=== PATIENT | male | born 1990 | race Hispanic/Latino ===

== ENCOUNTER 2019-03-20 20:15 | Emergency (ER) | payer OTHER ==
[~2019-03-20] VITALS: Ht 172.7 cm; Wt 99.8 kg
[2019-03-20] MEDS ORDERED: HYDROCODONE/APAP 10MG-325MG TAB PO ONE (21:15)
[2019-03-21] MEDS ORDERED: DICYCLOMINE HCL 20 MG/2 ML VIAL IM ONE (09:42)
[2019-03-21] MEDS ORDERED: KETOROLAC TROMETHAMINE 30 MG/ML VIAL ONE (09:42)
== END 2019-03-20 21:37 | disposition home or self-care (01) ==
LOC: ER 20:15
DX: R10.11 Right upper quadrant pain (principal); R11.0 Nausea; K80.70 Calculus of gallbladder and bile duct without cholecystitis without obstruction
CPT/HCPCS: 99282

== ENCOUNTER 2019-03-21 08:03 | Observation (INO) | payer OTHER ==
[~2019-03-21] VITALS: Ht 172.7 cm; Wt 101.2 kg
[2019-03-21] MEDS ORDERED: DICYCLOMINE HCL 20 MG/2 ML VIAL IM ONE (09:30)
[2019-03-21] MEDS ORDERED: SODIUM CHLORIDE 0.9% 1000ML 1,000 ML IV SCH ×2 (09:45→11:45)
[2019-03-21] MEDS ORDERED: KETOROLAC TROMETHAMINE 30 MG/ML VIAL IV ONE (10:00)
[2019-03-21 10:05] LABS: BASOPHILS % 0.3 % (0.0-1.0); EOSINOPHILS # (AUTO) 0.1 (0.0-0.4); HEMOGLOBIN 16.1 g/dL (14.0-18.0); LYMPHOCYTES # (AUTO) 1.4 (1.0-3.2); LYMPHOCYTES % 12.5 % (18.0-39.1); MEAN CORPUSCULAR HEMOGLOBIN 30.4 pg (28-32); MEAN CORPUSCULAR HGB CONC 33.5 g/dL (31-35); MEAN CORPUSCULAR VOLUME 90.6 fL (81-99); MONOCYTES # (AUTO) 0.7 (0.2-0.8); MONOCYTES % 6.6 % (4.4-11.3); NEUTROPHILS # (AUTO) 8.8 (2.1-6.9); NEUTROPHILS % 79.2 % (38.7-80.0); PLATELET COUNT 229 x10e3/uL (140-360); RED CELL DISTRIBUTION WIDTH 13.5 % (11.7-14.4)
[2019-03-21 10:28] LABS: ALANINE AMINOTRANSFERASE 32 IU/L (0-55); ALBUMIN 4.2 g/dL (3.5-5.0); ALBUMIN/GLOBULIN RATIO 1.1 (0.8-2.0); ALKALINE PHOSPHATASE 75 IU/L (40-150); ANION GAP 11.4 mmol/L (8-16); BLOOD UREA NITROGEN 6 mg/dL (7-26); BUN/CREATININE RATIO 5 (6-25); CALCIUM 9.7 mg/dL (8.4-10.2); CARBON DIOXIDE 25 mmol/L (22-29); CHLORIDE 100 mmol/L (98-107); CREATININE, SERUM 1.15 mg/dL (0.72-1.25); EST GLOMERULAR FILTRATION RATE > 60 ML/MIN (60-); GLUCOSE 82 mg/dL (74-118); POTASSIUM 4.4 mmol/L (3.5-5.1); SODIUM 132 mmol/L (136-145)
--- NOTE | 2019-03-21 10:35 | Diagnostic Imaging Report ---
Right upper quadrant abdominal ultrasound, 03/21/2019. History: Right upper quadrant pain. Comparison: None available. Discussion: Transverse and longitudinal images of the right upper quadrant of the abdomen were obtained demonstrating a liver of normal size and echogenicity measuring 15 cm in length. There is no evidence of a focal hepatic mass. The portal vein is patent with hepatopetal flow and is within normal limits measuring 10 mm in diameter. The biliary tree is within normal limits with the common bile duct measuring 3 mm in diameter. The gallbladder is filled with nonshadowing echogenic material. Gallbladder wall measures 3 mm with minimal pericholecystic fluid. The sonographic Prasad's sign was positive. The right kidney is normal in size and echogenicity without evidence of hydronephrosis, stones, or mass and measures 11.9 cm in length. The pancreas and aorta was obscured by overlying bowel gas. There is no evidence of free fluid. IMPRESSION: 1. Gallbladder filled with sludge and possible small stones with sonographic findings concerning for cholecystitis. 2. Pancreas and aorta not visualized. Signed by: Myron Padilla on 03/21/2019 10:31 AM
[2019-03-21 10:50] LABS: AMYLASE 44 U/L (25-125); LIPASE 31 U/L (8-78)
[2019-03-21] MEDS ORDERED: PIPER-TAZ 3.375 GM 50 ML IV ONE (11:45)
[2019-03-21] MEDS ORDERED: MORPHINE SULFATE INJ 10 MG/ML IV NR (11:45)
[2019-03-21] MEDS ORDERED: SODIUM CHLORIDE FLUSH 10 ML SYR INJ PRN (12:15)
--- OUTSIDE RECORDS SUMMARY | 2019-03-21 12:28 | XMS REPORT ---
Author Author [facility] Address Unknown Phone Unavailable Care Team Providers Care Dog Warden Name Role Phone Avery SAWYER Unavailable Unavailable Problems This patient has no known problems. Allergies, Adverse Reactions, Alerts This patient has no known allergies or adverse reactions. Medications This patient has no known medications. Results Test Description Test Time Test Comments Text Results Atomic Results Result Comments US GALLBLADDER 2019-03-21 10:27:00 [facility] [address] [address] Patient Name: LISA CAPUTO MR #: [id number] : 1990 Age/Sex: 29/M Req #: [id number] [facility] Physician: Ordered by: HESHAM SAWYER MD Report #: [id number] Location: ER Room/Bed: Procedure: [id number] US/US GALLBLADDER Exam Date: 03/21/19 Exam Time: 0943 REPORT STATUS: Signed Right upper quadrant abdominal ultrasound, 03/21/2019. History: Right upper quadrant pain. Comparison: None available. Discussion: Transverse and longitudinal images of the right upper quadrant of the abdomen were obtained demonstrating a liver of normal size and echogenicity measuring 15 cm in length. There is no evidence of a focal hepatic mass. The portal vein is patent with hepatopetal flow and is within normal limits measu ring 10 mm in diameter. The biliary tree is within normal limits with the common bile duct measuring 3 mm in diameter. The gallbladder is filled with nonshadowing echogenic material. Gallbladder wall measures 3 mm with minimal pericholecystic fluid. The sonographic Prasad's sign was positive. The right kidney is normal in size and echogenicity without evidence of hydronephrosis, stones, or mass and measures 11.9 cm in length. The pancreas and aorta was obscured by overlying bowel gas. There is no evidence of free fluid. IMPRESSION: 1. Gallbladder filled with sludge and possible small stones with sonographic findings concerning for cholecystitis. 2. Pancreas and aorta not visualized. Signed by: Natanael Padilla on 03/21/2019 10:31 AM Dictated By: NATANAEL PADILLA MD [id number] Transcribed By: AMANDEEP on 03/21/19 1031 COPY TO: HESHAM SAWYER MD
[2019-03-21] MEDS: PIPER-TAZ 3.375 GM 50 ML IV SCH ×2 (12:39→23:44)
[2019-03-21] MEDS: SODIUM CHLORIDE 0.9% 1000ML 1,000 ML IV SCH ×2 (12:39→23:15)
[2019-03-21] MEDS: ONDANSETRON HCL INJ 2MG/ML 2ML 2 MG/ML VIAL IV PRN ×2 (12:40→16:50)
[2019-03-21] MEDS ORDERED: MORPHINE SULFATE INJ 4 MG/ML INJ 1ML IV NR (14:30)
[2019-03-21 15:25] VITALS: BP 155/86
--- NOTE | 2019-03-21 15:25 | NUR ---
PATIENT RECEIVED FROM ER PER STRETCHER. ALERT AND VERBALLY RESPONSIVE. STATED THAT HE RECEIVED PAIN MEDICATION BEFORE COMING TO THE FLOOR AND IS FEELING BETTER. SKIN WARM AND DRY TO TOUCH WITH TATOOS TO MULTIPLE PARTS OF BODY. RESPIRATION EVEN AND UNLABORED, ABDOMEN SOFT, LARGE, AND TENDER TO TOUCH. IV FLUID INFUSING ORDERED. PATIENT ORIENTED TO SURROUNDINGS. BED IN LOWER POSITION, CALL LIGHT AT REACH. INSTRUCTED TO CALL FOR ASSISTANCE ORDERED.
[2019-03-21 15:30] VITALS: BP 155/86
[2019-03-21] MEDS: MORPHINE SULFATE INJ 4 MG/ML INJ 1ML IV PRN (16:50)
[2019-03-21] MEDS ORDERED: FAMOTIDINE 20 MG/2 ML VIAL IV SCH (17:00)
[2019-03-21] MEDS ORDERED: NEOSTIGMINE 5 MG/5ML SYR ONE (18:09)
[2019-03-21] MEDS ORDERED: ONDANSETRON HCL INJ 2MG/ML 2ML 2 MG/ML VIAL ONE (18:09)
[2019-03-21] MEDS ORDERED: DEXAMETHASONE SOD PHOS INJ 4 MG/ML VIAL ONE (18:09)
[2019-03-21] MEDS ORDERED: SEVOFLURANE INHAL SOLN 250 ML PEN BTL ONE (18:09)
[2019-03-21] MEDS ORDERED: ROCURONIUM BROMIDE 10 MG/ML 5ML VIAL ONE (18:09)
[2019-03-21] MEDS ORDERED: LIDOCAINE HCL 2% LOCAL INJ 5 ML SDV VIAL INJ ONE (18:09)
[2019-03-21] MEDS ORDERED: CEFTRIAXONE SOD 1 GM VIAL ONE (18:09)
[2019-03-21] MEDS ORDERED: PROPOFOL IV EMULSION 10 MG/ML 20 ML VIAL ONE (18:09)
[2019-03-21] MEDS ORDERED: GLYCOPYRROLATE INJ 1MG/ 5 ML SYR ONE (18:09)
[2019-03-21] MEDS ORDERED: FENTANYL CITRATE/PF 100MCG/2 ML INJ ONE (18:29)
[2019-03-21] MEDS ORDERED: MIDAZOLAM HCL 2 MG/2 ML VIAL ONE (18:29)
[2019-03-21 20:06] VITALS: BP 161/76
--- NOTE | 2019-03-21 20:09 | NUR ---
pt taken down for surgery
[2019-03-21 20:27] VITALS: BP 161/76
[2019-03-21] MEDS ORDERED: BUPIVACAINE 0.25%/EPI 30ML SDV INJ ONE (20:32)
[2019-03-21] MEDS ORDERED: ACETAMINOPHEN 1000 MG/100 ML 100 ML IV ONE (21:41)
[2019-03-21] MEDS ORDERED: ACETAMINOPHEN 1000 MG/100 ML IV PRN (22:15)
--- NOTE | 2019-03-21 23:01 | NUR ---
received pt back from surgery, 5 trochar sites noted with band aides in place C/D/I, no c/o pain or discomfort, resp even and unlabored, girlfriend at bedside, NS@125 via 20G IV to right hand, call light in reach
[2019-03-22 00:09] VITALS: BP 129/81
--- NOTE | 2019-03-22 01:06 | Operative Report ---
DATE OF PROCEDURE: 03/21/2019 SURGEON: Josesito Moses MD PREOPERATIVE DIAGNOSIS: Acute cholecystitis and cholelithiasis. POSTOPERATIVE DIAGNOSIS: Acute cholecystitis and cholelithiasis. OPERATION PERFORMED: Laparoscopic cholecystectomy. FOOD MIXER: George Mosse MD ANESTHESIA: General endotracheal. COMPLICATIONS: None. ESTIMATED BLOOD LOSS: 25 mL. DESCRIPTION OF PROCEDURE: With the patient lying in bed in the supine position under good general anesthesia, the abdomen was prepped with Betadine solution and draped in the usual manner. A Veress needle was introduced into the umbilicus and pneumoperitoneum was established without any difficulty. An 11 mm trocar was placed into the umbilicus and a 10 mm video laparoscope was placed into the intraabdominal cavity. Under direct vision, three 5 mm trocars were placed in the right subcostal region. An extra 5 mm trocar was placed in the left upper abdomen to retract some redundant transverse colon. Video laparoscopy at this point revealed an acutely inflamed, edematous, tense gallbladder that had a large stone impacted at the neck of the gallbladder. The gallbladder was then decompressed with a needle in order to be able to grasp it. Once this was done, the peritoneum overlying the neck of the gallbladder was then opened and the cystic duct was identified. The cystic duct was followed to its junction with the common duct. The cystic duct was then circumferentially dissected away from the common duct, doubly clipped and divided. The cystic artery was similarly doubly clipped and divided. The gallbladder was then slowly and carefully taken off the liver bed using the cautery scissors and perfect hemostasis was ascertained. The gallbladder was then placed in a pouch and removed through the umbilicus after enlarging the umbilical incision to allow for passage of the large stone that was present. Video laparoscopy was then again carried out. The liver bed was found to be perfectly dry. All of the excess fluid was aspirated. The pneumoperitoneum was evacuated and all the trocars were removed under direct vision. The midline fascia at the umbilicus was then closed with two [id number] 0 Vicryl. All layers were infiltrated on the way out with solution of 0.25% Marcaine. Subcutaneous tissue was approximated with 3-0 Vicryl and the skin was closed with subcuticular 5-0 Vicryl. Benzoin, Steri-Strips, and Band-Aids were applied. The sponge, lap, and needle count was correct. The patient tolerated the procedure well and returned to the recovery room in stable condition. MD INES Hawkins/NAGA /[id number]
[2019-03-22] MEDS: MORPHINE SULFATE INJ 4 MG/ML INJ 1ML IV PRN ×2 (01:34→06:29)
[2019-03-22] MEDS: ONDANSETRON HCL INJ 2MG/ML 2ML 2 MG/ML VIAL IV PRN ×2 (01:34→06:29)
[2019-03-22 04:00] VITALS: BP 102/55
[2019-03-22 05:24] LABS: HEMATOCRIT 42.6 % (38.2-49.6); LYMPHOCYTES # (AUTO) 0.7 (1.0-3.2); LYMPHOCYTES % 6.9 % (18.0-39.1); MEAN CORPUSCULAR HEMOGLOBIN 29.5 pg (28-32); MEAN CORPUSCULAR HGB CONC 32.9 g/dL (31-35); MEAN CORPUSCULAR VOLUME 89.7 fL (81-99); MONOCYTES # (AUTO) 0.2 (0.2-0.8); MONOCYTES % 1.9 % (4.4-11.3); NEUTROPHILS # (AUTO) 8.9 (2.1-6.9); NEUTROPHILS % 90.9 % (38.7-80.0); PLATELET COUNT 233 x10e3/uL (140-360); RED BLOOD COUNT 4.75 x10e6/uL (4.3-5.7); RED CELL DISTRIBUTION WIDTH 13.3 % (11.7-14.4)
[2019-03-22 05:45] LABS: ALANINE AMINOTRANSFERASE 45 IU/L (0-55); ALBUMIN 3.4 g/dL (3.5-5.0); ALBUMIN/GLOBULIN RATIO 1.1 (0.8-2.0); ALKALINE PHOSPHATASE 71 IU/L (40-150); ANION GAP 13.2 mmol/L (8-16); BLOOD UREA NITROGEN 8 mg/dL (7-26); BUN/CREATININE RATIO 8 (6-25); CARBON DIOXIDE 25 mmol/L (22-29); CHLORIDE 101 mmol/L (98-107); CREATININE, SERUM 1.03 mg/dL (0.72-1.25); EST GLOMERULAR FILTRATION RATE > 60 ML/MIN (60-); GLUCOSE 116 mg/dL (74-118); POTASSIUM 4.2 mmol/L (3.5-5.1); SODIUM 135 mmol/L (136-145)
[2019-03-22] MEDS: PIPER-TAZ 3.375 GM 50 ML IV SCH ×2 (06:18→13:37)
[2019-03-22] MEDS: SODIUM CHLORIDE 0.9% 1000ML 1,000 ML IV SCH ×2 (06:18→13:28)
--- NOTE | 2019-03-22 07:00 | NUR ---
BEDSIDE SHIFT REPORT RECEIVED FROM THE OVEREDGE SEWER RN. PT FAMILY AT BEDSIDE. PT DENIES NEEDS AT THIS TIME
[2019-03-22 08:11] VITALS: BP 103/55
[2019-03-22 08:48] VITALS: BP 103/55
[2019-03-22] MEDS: HYDROCODONE/APAP 7.5MG-325MG 1 EA TAB PO PRN ×2 (10:26→17:22)
[2019-03-22 11:47] VITALS: BP 132/72
--- NOTE | 2019-03-22 15:45 | NUR ---
ANGELA WILSON OFFICE AND INFORMED PT BP LEVELS.
[2019-03-22 15:56] VITALS: BP 155/67
--- NOTE | 2019-03-22 17:30 | NUR ---
PAGED DR. STEPHEN OFFICE REGARDING ADVANCING THE DIET FOR PT. NO NEW ORDERS RECEIVED.
[2019-03-22] MEDS ORDERED: TYLENOL WITH C1 EACH PO (18:57)
[2019-03-22] MEDS ORDERED: LEVAQUIN500 MG PO (18:57)
--- NOTE | 2019-03-22 19:15 | NUR ---
PT DISCHARGED HOME SAFELY WITH FAMILY. PT REFUSED ASSISTANCE. IV REMOVED.TIP INTACT. NO BLEEDING NOTED. DRESSING APPLIED. PT DENIED FURTHER NEEDS.
== END 2019-03-22 19:38 | disposition home or self-care (01) ==
LOC: ER 08:03 → INTOOBSV 12:12 → ERHOLD 12:12 → MED/SURG2 15:02
PROVIDERS: ADMIT Surgery; ATTEND Surgery
DX: K80.12 Calculus of gallbladder with acute and chronic cholecystitis without obstruction (principal); Z82.49 Family history of ischemic heart disease and other diseases of the circulatory system
CPT/HCPCS: 36415 ×2; 47562; 76705; 80053 ×2; 82150; 83690; 85025 ×2; 88304; 99284; C1766; G0378 ×2; J0131; J0500; J0696; J1100; J1885; J2001; J2250; J2270 ×2; J2405 ×2; J2543 ×2; J2704; J3010; J3490; J7030 ×2